=== PATIENT | male | born 1940 | race Caucasian/White ===

== ENCOUNTER → 2021-10-19 13:57 | Outpatient (CLI) | payer OTHER, SELFPAY ==
--- NOTE | 2021-10-19 14:01 | DI.RAD.S_ITS ---
PROCEDURE: XR LUMBAR SPINE MIN 4V INDICATIONS: BACK AND HIP PAIN TECHNIQUE: 5 views of the lumbar spine acquired. COMPARISON: None. FINDINGS: Bones: 5 nonrib-bearing vertebrae are present. There is right lateral L1-L2 and L2-L3 subluxation. Convex right thoracolumbar spine scoliosis. No vertebral body compression fractures. No suspicious bony lesions. Severe degenerative disc changes noted throughout the lumbar spine. Severe L3-L4, L4-L5 and L5-S1 facet arthropathy. Moderate L1-L2 and L2-L3 facet arthropathy. Partially visualized right hip arthroplasty. Soft tissues: Overlying bowel gas pattern is normal. No suspicious soft tissue calcifications. IMPRESSION: 1. Multilevel degenerative disc disease. 2. Multilevel facet arthropathy. 3. No fracture. No acute osseous lesion. If symptoms and/or clinical suspicion for pathology persists, evaluation with MRI should be considered for further assessment. Dictated by: Karime Gong MD, PhD on 10/19/2021 at 16:00 Approved by: Karime Gong MD, PhD on 10/19/2021 at 16:18
== END ==
PROVIDERS: PCP Family Medicine; Referring Provider Physical Medicine & Rehabilitation; Visit Provider Physical Medicine & Rehabilitation
DX: M51.36 Other intervertebral disc degeneration, lumbar region (principal); M47.816 Spondylosis without myelopathy or radiculopathy, lumbar region; M47.817 Spondylosis without myelopathy or radiculopathy, lumbosacral region; M41.26 Other idiopathic scoliosis, lumbar region; M48.062 Spinal stenosis, lumbar region with neurogenic claudication; M54.9 Dorsalgia, unspecified; M25.559 Pain in unspecified hip; Z96.641 Presence of right artificial hip joint
CPT/HCPCS: 72110; 99215